=== PATIENT | female | born 1975 | race African-American/Black ===

== ENCOUNTER 2017-11-02 19:12 | Emergency (ER) | payer BC, MEDICAID ==
[~2017-11-02] VITALS: Ht 167.6 cm; Wt 75.0 kg
[2017-11-02 19:26] VITALS: BP 117/87
== END 2017-11-02 21:32 | disposition home or self-care (01) ==
LOC: ER 19:12
DX: J06.9 Acute upper respiratory infection, unspecified (principal); H66.91 Otitis media, unspecified, right ear; Z98.890 Other specified postprocedural states
CPT/HCPCS: 99283

== ENCOUNTER 2017-11-28 17:59 | Emergency (ER) | payer SELFPAY ==
[~2017-11-28] VITALS: Ht 167.6 cm; Wt 73.0 kg
[2017-11-28] MEDS ORDERED: IBUPROFEN 800MG TABLET PO ONE (21:45)
[2017-11-28 21:52] VITALS: BP 109/72
== END 2017-11-28 21:53 | disposition home or self-care (01) ==
LOC: ER 17:59
DX: S13.9XXA Sprain of joints and ligaments of unspecified parts of neck, initial encounter (principal); M54.5 Low back pain; V43.52XA Car driver injured in collision with other type car in traffic accident, initial encounter; Y93.89 Activity, other specified; Y92.488 Other paved roadways as the place of occurrence of the external cause
CPT/HCPCS: 99282

== ENCOUNTER 2018-03-03 22:10 | Emergency (ER) | payer OTHER ==
[~2018-03-03] VITALS: Ht 167.6 cm; Wt 75.0 kg
[2018-03-03 23:02] VITALS: BP 128/55
[2018-03-04] MEDS ORDERED: KETOROLAC 15MG/ML VIAL IM ONE (01:15)
== END 2018-03-04 01:53 | disposition home or self-care (01) ==
LOC: ER 22:10
DX: M54.32 Sciatica, left side (principal)
CPT/HCPCS: 96372; 99283; J1885

== ENCOUNTER 2022-11-07 08:24 | Emergency (ER) | payer MEDICAID, OTHER ==
[~2022-11-07] VITALS: Ht 167.6 cm; Wt 79.0 kg
[2022-11-07 08:29] VITALS: O2SAT 100
[2022-11-07 10:15] VITALS: BP 138/66; PULSE 67; RESP 20; TEMP 98.7
[2022-11-07] MEDS ORDERED: IBUPROFEN 800MG TABLET PO ONE (10:15)
[2022-11-07] MEDS ORDERED: BACITRACIN ZINC OINT UDPKT TOP ONE (10:15)
[2022-11-07] MEDS ORDERED: ACETAMINOPHEN 325MG TABLET PO ONE (10:15)
[2022-11-07] MEDS ORDERED: TETANUS, DIPHTHERIA, PERTUSSIS VAC/PF 0.5ML (>10YR OLD) IM ONE (10:15)
[2022-11-07] MEDS ORDERED: AMOX50SU15 MT (10:36)
[2022-11-07] MEDS ORDERED: TOPUD MT (10:36)
[2022-11-07] MEDS ORDERED: IBUP-1525 MT (10:36)
== END 2022-11-07 10:51 | disposition home or self-care (01) ==
LOC: ER 08:24
DX: S61.451A Open bite of right hand, initial encounter (principal); Z98.890 Other specified postprocedural states; X58.XXXA Exposure to other specified factors, initial encounter; Y93.89 Activity, other specified; Y92.89 Other specified places as the place of occurrence of the external cause; Y99.8 Other external cause status
CPT/HCPCS: 90471; 90715; 99283